=== PATIENT | male | born 1940 | race Caucasian/White ===

== ENCOUNTER 2021-05-18 15:27 | Emergency (ER) | payer MEDICARE ==
[2021-05-18] MEDS ORDERED: Aspirin Chewable 81 MG TAB ONE (16:36)
[2021-05-18] MEDS ORDERED: Nitroglycerin 2% Ointment 1 INCH/1 GM Packet ONE (16:36)
[2021-05-18 16:43] LABS: #Eosinphils 0.1 10x3/uL (0.0-0.5); #Monocytes 0.4 10x3/uL (0.0-1.1); #Neutrophils 3.3 10x3/uL (1.5-8.4); %Basophils 0.5 % (0.0-2.0); %Eosinophils 1.8 % (0.0-6.0); %Lymphocytes 29.4 % (18.0-47.0); %Neutrophils 59.9 % (40.0-75.0); Hemoglobin 10.8 g/dL (13.5-17.5); Mean Corpuscular HGB CONC 32.8 g/dL (32.0-36.0); Mean Corpuscular Hemoglobin 31.8 pg (27.0-33.0); Mean Corpuscular Volume 96.8 fl (81.2-95.1); Mean Platelet Volume 11.5 fl (7.4-10.4); Platelet Count 86 10x3/uL (150-450); RBC Distribution Width 12.7 % (11.5-14.5); White Blood Cell (WBC) Count 5.5 10x3/uL (3.5-10.5)
[2021-05-18 16:55] LABS: ALT (SGPT) 10 U/L (8-55); AST (SGOT) 14 U/L (5-34); Albumin 3.3 g/dL (3.4-4.8); Alkaline Phosphatase 69 U/L (40-110); Anion Gap 11 mmol/L (10-20); BUN (Urea Nitrogen) 13 mg/dL (8.4-25.7); Bilirubin, Total 0.8 mg/dL (0.2-1.2); CK (CPK) 39 U/L (30-200); Calc. Creatinine Clearance 0 mL/min (70-130); Calcium 8.8 mg/dL (7.8-10.44); Carbon Dioxide 26 mmol/L (23-31); Chloride 105 mmol/L (98-107); Globulin 2.4 g/dL (2.4-3.5); Glucose 175 mg/dL (83-110); Lipase 13 U/L (8-78); Potassium 4.4 mmol/L (3.5-5.1); Protein, Total 5.7 g/dL (5.8-8.1); Sodium 138 mmol/L (136-145)
[2021-05-18] MEDS ORDERED: Ondansetron PF 4 MG/2 ML Vial IVP PRN (22:06)
[2021-05-18] MEDS ORDERED: Acetaminophen 325 MG TAB PO PRN (22:07)
== END 2021-05-18 20:40 | disposition short-term general hospital (02) ==
LOC: CSHERS 15:27
DX: R07.9 Chest pain, unspecified (principal); I44.0 Atrioventricular block, first degree; E11.9 Type 2 diabetes mellitus without complications; I10 Essential (primary) hypertension; I25.10 Atherosclerotic heart disease of native coronary artery without angina pectoris; E78.5 Hyperlipidemia, unspecified; I25.2 Old myocardial infarction; E78.00 Pure hypercholesterolemia, unspecified; Z87.891 Personal history of nicotine dependence; Z79.82 Long term (current) use of aspirin; Z79.84 Long term (current) use of oral hypoglycemic drugs; Z79.899 Other long term (current) drug therapy
CPT/HCPCS: 36415; 71045; 71275; 80053; 82550; 83690; 84484; 85025; 85379; 93005

== ENCOUNTER 2022-05-07 12:16 | Outpatient (CLI) | payer MEDICARE | END 2022-05-07 12:17 | disposition home or self-care (01) | LOC: CSHSPEC 12:16 | PROVIDERS: ATTEND Neurological Surgery | DX: M43.12 Spondylolisthesis, cervical region (principal); M47.12 Other spondylosis with myelopathy, cervical region; M47.812 Spondylosis without myelopathy or radiculopathy, cervical region; M48.02 Spinal stenosis, cervical region | CPT/HCPCS: 72040; 72141 ==